=== PATIENT | female | born 1975 | race Two or more races ===

== ENCOUNTER 2023-02-15 14:23 | Emergency (ER) | payer OTHER ==
[~2023-02-15] VITALS: Ht 157.5 cm; Wt 68.0 kg
[~2023-02-15 14:23] MED LIST: AMBIEN CR6.25 MG/BL PO; SKELAXIN800 MG PO
== END 2023-02-15 18:10 | disposition home or self-care (01) ==
LOC: ER 14:23
DX: F41.0 Panic disorder [episodic paroxysmal anxiety] (principal)